=== PATIENT | female | born 2000 | race Caucasian/White ===

== ENCOUNTER 2019-05-04 23:00 | Observation (INO) ==
[2019-05-04] MEDS ORDERED: DIPH,PERTUSS,TET(ADACEL) VAC/PF 0.5 ML (Tdap) IM ONE (23:07)
[2019-05-04] MEDS ORDERED: ceFAZolin Inj 2gm (Premix) 2 GM/50 ML BAG IV ONE (23:07)
[2019-05-04] MEDS ORDERED: Sodium Chloride 0.9% 1,000 ML PRIMARY IV ONE (23:07)
[2019-05-04 23:21] LABS: Hematocrit [HCT] 45.3 % (37.0-47.0); Hemoglobin [HGB] 15.1 g/dL (12.0-16.0); MEAN CORPUSCULAR HGB CONC 33.3 g/dL (33-37); MEAN CORPUSCULAR VOLUME 88.1 FL (81-99); RED BLOOD COUNT 5.14 10^6/uL (4.20-5.40)
[2019-05-04 23:22] LABS: BASOPHILS # (AUTO) 0.05 10*3/UL; BASOPHILS % (AUTO) 0.2 % (0-1); EOSINOPHILS # (AUTO) 0.99 10*3/UL; EOSINOPHILS % (AUTO) 4.6 % (0-8); LYMPHOCYTES # (AUTO) 1.95 10*3/uL; MEAN PLATELET VOLUME 8.4 FL (7.4-12.2); MONOCYTES # (AUTO) 1.51 10*3/UL (0.3-0.8); MONOCYTES % (AUTO) 7.1 % (5-15); NEUTROPHILS # (AUTO) 16.77 10*3/UL; NEUTROPHILS % (AUTO) 78.7 % (50-80); PLATELET MORPHOLOGY COMMENT NORMAL MORPHOLOGY (NORM); RBC MORPHOLOGY COMMENT NORMAL MORPHOLOGY (NORM); WBC MORPHOLOGY COMMENT NORMAL MORPHOLOGY (NORM)
[2019-05-04 23:28] LABS: BLOOD UREA NITROGEN 11 mg/dL (7-22); SERUM ALBUMIN 3.7 g/dL (3.5-4.8)
[2019-05-04] MEDS ORDERED: fentaNYL Inj 100 MCG/2 ML VIAL IVP ONE (23:44)
[2019-05-05 00:20] LABS: BILIRUBIN,URINE NEGATIVE (NEG); CLARITY,URINE CLEAR (CLEAR); COLOR,URINE YELLOW (Y); GLUCOSE, URINE (UA) NEGATIVE (NEG); OCCULT BLOOD,URINE NEGATIVE (NEG); PROTEIN,URINE NEGATIVE (NEG); UROBILINOGEN,URINE 0.2 EU/dL (0.2)
[2019-05-05 00:23] LABS: URINE SAMPLE TYPE CLEAN CATCH URINE
[2019-05-05] MEDS ORDERED: BACITRACIN 50,000 UNIT VIAL IRRIG ONE (00:23)
[2019-05-05] MEDS ORDERED: Sodium Chloride 0.9% vial 20 ML ONE (00:23)
[2019-05-05] MEDS ORDERED: SUCCINYLCHOLINE CHLORIDE 20 MG/1 ML - 10 ML ONE (00:24)
[2019-05-05] MEDS ORDERED: fentaNYL Inj 100 MCG/2 ML VIAL ONE (00:26)
[2019-05-05] MEDS ORDERED: KETOROLAC 30 MG/1 ML VIAL ONE (00:27)
[2019-05-05] MEDS ORDERED: ONDANSETRON 4 MG/2 ML VIAL ONE (00:27)
[2019-05-05] MEDS ORDERED: LIDOCAINE MPF 2% - 5 ML (20 MG/1 ML) ONE (00:27)
[2019-05-05] MEDS ORDERED: PROPOFOL 10 MG/1 ML (200 MG/20 ML) VIAL IV ONE ×2 (00:27→01:19)
[2019-05-05 00:38] LABS: OPIATE SCREEN,URINE POSITIVE (NEG); URINE SAMPLE TYPE CLEAN CATCH URINE; URINE SPECIFIC GRAVITY - MAN 1.015
[2019-05-05 00:39] LABS: AMPHETAMINE SCREEN POSITIVE (NEG); CANNABINOID SCREEN,URINE POSITIVE (NEG); COCAINE SCREEN NEGATIVE (NEG); METHADONE URINE SCREEN NEGATIVE (NEG); METHAMPHETAMINES SCREEN,URINE POSITIVE (NEG)
[2019-05-05] MEDS ORDERED: Meperidine Inj 50 MG/ML CARPUJECT IVP PRN (01:51)
[2019-05-05] MEDS ORDERED: fentaNYL Inj 100 MCG/2 ML VIAL IVP PRN (01:51)
[2019-05-05] MEDS ORDERED: MORPHINE SULFATE 2 MG/1 ML IVP PRN ×2 (01:51→02:35)
[2019-05-05] MEDS ORDERED: LIDOCAINE W/ SODIUM BICARB 0.5 ML SYR SUBD PRN ×2 (01:51→02:35)
[2019-05-05] MEDS ORDERED: HYDROmorphone 2 MG/1 ML IVP PRN (01:51)
[2019-05-05] MEDS ORDERED: Lactated Ringers 1,000 ML PRIMARY IV SCH (02:00)
[2019-05-05] MEDS ORDERED: ALBUTEROL SULFATE 2.5 MG/3 ML NEB ONE (02:16)
[2019-05-05] MEDS ORDERED: KETOROLAC 15 MG/1 ML VIAL IVP PRN (02:35)
[2019-05-05] MEDS ORDERED: ceFAZolin 1 GM VIAL IVP SCH (02:35)
[2019-05-05] MEDS: HYDROcodone-APAP 5 MG -325 MG TABLET PO PRN ×2 (03:25→10:33)
[2019-05-05] MEDS ORDERED: ALBUTEROL SULFATE 2.5 MG/3 ML NEB SCH (07:00)
[2019-05-05 07:08] VITALS: RESP 16
[2019-05-05 10:55] VITALS: BP 112/75; TEMP 99.1; O2SAT 95
[2019-05-05] MEDS ORDERED: ceFAZolin Inj 2gm (Premix) 2 GM/50 ML BAG IV SCH (15:30)
== END 2019-05-05 13:12 | disposition home or self-care (01) ==
LOC: ER 23:00 → MED/SURG 05-05 00:45 → OR 05-05 00:45 → OPS 05-05 00:48
PROVIDERS: ADMIT Surgery; ATTEND Surgery